=== PATIENT | female | born 2000 | race Two or more races ===

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

== ENCOUNTER 2024-03-29 10:01 | Inpatient (IN) ==
[2024-03-29] MEDS ORDERED: Lidocaine 1% VIAL 10 MG/ML 30 ML VIAL INJ PRN (10:05)
[2024-03-29] MEDS ORDERED: Mometasone 220 MCG MDI INH PRN (11:05)
[2024-03-29 11:49] LABS: ABS Basophils 0.1 10^3/uL (0.0-0.1); ABS Eosinophils 0.2 10^3/uL (0.0-0.5); ABS Lymphocytes 1.9 10^3/uL (1.0-4.8); ABS Monocytes 1.3 10^3/uL (0.0-0.9); ABS Nucleated RBC 0.01 10^3/ul; Eosinophil % 1.4 %; Hematocrit 34.4 % (35-45); Hemoglobin 11.6 g/dL (11.5-14.3); Lymphocyte % 13.9 %; Mean Corpuscular Hemoglobin 31.2 pg (27-33); Mean Corpuscular Hgb Conc 33.8 g/dL (31-36); Mean Corpuscular Volume 92.2 fL (80-97); Mean Platelet Volume 7.4 fL (7.5-11.2); Nucleated Red Blood Cells % 0.1 %/100WBC (0.0-0.8); Platelet Count 402 10^3/uL (150-450); Red Blood Count 3.73 10^6/uL (3.63-4.92); Red Cell Distribution Width 13.6 % (12-17); White Blood Count 13.4 10^3/uL (3.8-11.8)
[2024-03-29] MEDS: Dinoprostone 10 MG VAG.SUPP VAGINAL ONE (12:00)
[2024-03-29 12:07] LABS: Urine Creatinine Concentration 99.36 mg/dL (20.00-320.00); Urine TP Creat Ratio 0.55 mg/mg
[2024-03-29 12:13] LABS: Albumin 3.4 g/dL (3.2-5.2); Albumin/Globulin Ratio 1.1 (1-3); Calcium 8.9 mg/dL (8.6-10.3); Creatinine, Serum 0.65 mg/dL (0.51-0.95); Potassium 4.3 mmol/L (3.5-5.0); Total Bilirubin 0.6 mg/dL (0.2-1.0); Total Protein 6.4 g/dL (6.4-8.9); Uric Acid 4.2 mg/dL (2.3-6.6); eGFR CKD-EPI 127.6 (>60)
[2024-03-29 12:53] LABS: Urine Benzodiazepine Screen None Detected (None Detect); Urine Cannabinoids Screen Presumptive Positive (None Detect); Urine Opiates Screen None Detected (None Detect)
[2024-03-30] MEDS: Lactated Ringers 1000 ml BAG 1,000 ML IV ONE (00:20)
[2024-03-30] MEDS ORDERED: Phenylephrine 40 mcg/mL 10mL (400mcg) SYRINGE IV PUSH PRN ×2 (00:46)
[2024-03-30] MEDS: OBEPIDURAL (200 ML) 200 ML EPIDURAL SCH (01:00)
[2024-03-30] MEDS: Lactated Ringers 1000 ml BAG 1,000 ML IV SCH (01:00)
[2024-03-30 02:33] LABS: Urine Appearance Clear; Urine Bilirubin Negative (Negative); Urine Blood Negative (Negative); Urine Color Yellow; Urine Glucose Negative (Negative); Urine Ketones Negative (Negative); Urine Nitrite Negative (Negative); Urine Protein Trace (Negative); Urine Specific Gravity 1.024 (1.002-1.030); Urine Urobilinogen 1+ (Negative)
[2024-03-30] MEDS: Lidocaine 1.5% EPI 1:200,000 30 ML SDV ONE (06:51)
[2024-03-30] MEDS: OBEPIDURAL (200 ML) 200 ML EPIDURAL ONE (06:57)
[2024-03-30] MEDS: Oxytocin in LR 20,000 MILLI.UNIT/1,000 ML BAG IV SCH (11:15)
[2024-03-30] MEDS ORDERED: Glycerin ADULT 2.4 gm SUPP PR PRN (15:43)
[2024-03-30] MEDS ORDERED: Lactated Ringers 1000 ml BAG 1,000 ML IV SCH (16:00)
[2024-03-30] MEDS: Witch Hazel PAD JAR TOPICAL PRN (19:01)
[2024-03-30] MEDS: Dibucaine 1% OINT 28.35 GM TUBE PR PRN (19:01)
[2024-03-30 22:58] LABS: Syphilis IgG Screen Nonreactive
[2024-03-31 06:59] LABS: ABS Basophils 0.1 10^3/uL (0.0-0.1); ABS Eosinophils 0.2 10^3/uL (0.0-0.5); ABS Monocytes 1.5 10^3/uL (0.0-0.9); ABS Neutrophils 13.5 10^3/uL (1.5-7.6); ABS Nucleated RBC 0.01 10^3/ul; Eosinophil % 1.1 %; Hematocrit 30.2 % (35-45); Hemoglobin 10.2 g/dL (11.5-14.3); Lymphocyte % 11.8 %; Mean Corpuscular Hemoglobin 31.3 pg (27-33); Mean Corpuscular Hgb Conc 33.9 g/dL (31-36); Mean Corpuscular Volume 92.4 fL (80-97); Mean Platelet Volume 7.2 fL (7.5-11.2); Nucleated Red Blood Cells % 0.1 %/100WBC (0.0-0.8); Platelet Count 363 10^3/uL (150-450); Red Blood Count 3.27 10^6/uL (3.63-4.92); White Blood Count 17.3 10^3/uL (3.8-11.8)
[2024-03-31] MEDS: Lactated Ringers 1000 ml BAG 1,000 ML IV ONE (07:39)
[2024-03-31] MEDS: Oxytocin in LR 20,000 MILLI.UNIT/1,000 ML BAG IV SCH (07:39)
[2024-03-31 11:49] LABS: Albumin 2.8 g/dL (3.2-5.2); Albumin/Globulin Ratio 1.1 (1-3); Calcium 8.5 mg/dL (8.6-10.3); Creatinine, Serum 0.67 mg/dL (0.51-0.95); Globulin 2.5 g/dL (2-4); Potassium 4.5 mmol/L (3.5-5.0); Total Bilirubin 0.5 mg/dL (0.2-1.0); Total Protein 5.3 g/dL (6.4-8.9); eGFR CKD-EPI 126.7 (>60)
[2024-04-01 10:17] VITALS: BP 121/53
== END 2024-04-01 17:35 | disposition home or self-care (01) | DRG 560 ==
LOC: MCHOBOUT 10:01 → MCHOB 10:11
PROVIDERS: ADMIT Midwife